=== PATIENT | female | born 1950 | race African-American/Black ===

== ENCOUNTER 2021-06-12 20:56 | Inpatient (IN) | payer MEDICARE, OTHER ==
[~2021-06-12] VITALS: Ht 149.9 cm; Wt 38.1 kg
[2021-06-12 23:23] LABS: HEMATOCRIT. 41.3 % (36.0-48.0); MEAN CORPUSCULAR HEMOGLOBIN 24.6 pg (28.0-32.0); MEAN PLATELET VOLUME 9.2 fl (7.4-10.4); PLATELET 305 x1000/uL (130-400); RED BLOOD CELL COUNT 5.29 mill/uL (4.2-5.4); RED CELL DISTRIBUTION WIDTH 17.8 % (11.6-14.6)
[2021-06-13 00:12] LABS: CHLORIDE 102 mEq/L (98-107)
[2021-06-13] MEDS ORDERED: DEXAMETHASONE 10 MG/ML VIAL IV ONE (02:45)
[2021-06-13 05:17] LABS: PLATELET ESTIMATE NORMAL
[2021-06-13 05:21] VITALS: BP 139/79
[2021-06-13 05:22] VITALS: BP 139/79
[2021-06-13] MEDS ORDERED: NICO-645 TP (05:42)
[2021-06-13] MEDS ORDERED: CHOLECALCIFEROL GT (05:42)
[2021-06-13] MEDS ORDERED: AMLO10TA80 GT (05:42)
[2021-06-13] MEDS ORDERED: MULT-230 GT (05:42)
[2021-06-13] MEDS ORDERED: IOHEXOL-300 100 ML BOTTLE ONE (05:59)
[2021-06-13] MEDS ORDERED: CLONIDINE 0.1MG TABLET PO PRN (07:00)
[2021-06-13] MEDS ORDERED: ACETAMINOPHEN 325MG TABLET PO PRN (07:00)
[2021-06-13] MEDS ORDERED: ALBUTEROL 6.7GM HFA INHALER ORI PRN (07:00)
[2021-06-13] MEDS ORDERED: ONDANSETRON HCL 4MG/2ML INJ IV PRN (07:00)
[2021-06-13] MEDS ORDERED: DOCUSATE SODIUM 100MG CAPSULE PO PRN (07:00)
[2021-06-13 08:00] VITALS: BP 151/89
[2021-06-13] MEDS: ENOXAPARIN 30MG/0.3ML SYR SUBCUT SCH (09:01)
[2021-06-13] MEDS: DEXAMETHASONE 10 MG/ML VIAL IV SCH (09:01)
[2021-06-13 12:00] VITALS: BP 138/79
[2021-06-13 16:00] VITALS: BP 136/80
[2021-06-13] MEDS: THIAMINE HCL 100MG TABLET PO SCH (16:34)
[2021-06-13] MEDS: GUAIFENESIN 200MG/10ML SUGAR FREE UDC PO PRN ×2 (17:30→21:36)
[2021-06-13] MEDS: HYDROCODONE/ACETAMINOPHEN 5/325MG TABLET PO PRN ×2 (17:31→21:37)
[2021-06-13 20:00] VITALS: BP 125/81
[2021-06-13 20:50] LABS: HEMOGLOBIN. 11.9 g/dL (12.0-16.0); MEAN CORPUSCULAR HEMOGLOBIN 24.2 pg (28.0-32.0); MEAN CORPUSCULAR VOLUME 77.5 fL (81.0-99.0); MEAN PLATELET VOLUME 9.3 fl (7.4-10.4); PLATELET 339 x1000/uL (130-400); RED BLOOD CELL COUNT 4.91 mill/uL (4.2-5.4); RED CELL DISTRIBUTION WIDTH 18.4 % (11.6-14.6)
[2021-06-13 21:00] LABS: CHLORIDE 107 mEq/L (98-107)
[2021-06-13] MEDS ORDERED: CEFTRIAXONE 1 G PREMIX 50 ML IV SCH (21:15)
[2021-06-13] MEDS: AZITHROMYCIN 500 MG in DEXT 5% WATER 250 ML IV SCH (22:12)
[2021-06-13 23:22] LABS: PLATELET ESTIMATE NORMAL
[2021-06-13] MEDS: CEFTRIAXONE 1,000 MG in DEXTROSE 5% WATER 50 ML IV SCH (23:37)
[2021-06-14] VITALS (7 sets, daily range): BP systolic 124–161; BP diastolic 73–95
[2021-06-14] MEDS: GUAIFENESIN 200MG/10ML SUGAR FREE UDC PO PRN ×3 (04:53→21:04)
[2021-06-14] MEDS: HYDROCODONE/ACETAMINOPHEN 5/325MG TABLET PO PRN ×2 (04:54→19:26)
[2021-06-14] MEDS: DEXAMETHASONE 10 MG/ML VIAL IV SCH (09:00)
[2021-06-14] MEDS: THIAMINE HCL 100MG TABLET PO SCH (09:06)
[2021-06-14] MEDS: FAMOTIDINE 20MG TABLET PO SCH (09:06)
[2021-06-14] MEDS: ENOXAPARIN 30MG/0.3ML SYR SUBCUT SCH (09:06)
[2021-06-14] MEDS ORDERED: NALOXONE HCL 0.4MG/ML VIAL IV PRN (16:15)
[2021-06-14] MEDS ORDERED: DOCUSATE SODIUM SUGAR FREE 100MG/10ML UDC GT PRN (19:30)
[2021-06-14] MEDS: AZITHROMYCIN 500 MG in DEXT 5% WATER 250 ML IV SCH (21:04)
[2021-06-14] MEDS: CEFTRIAXONE 1,000 MG in DEXTROSE 5% WATER 50 ML IV SCH (23:32)
[2021-06-15] VITALS: BP 149/90
[2021-06-15] MEDS: GUAIFENESIN 200MG/10ML SUGAR FREE UDC PO PRN ×4 (03:31→17:07)
[2021-06-15] MEDS: HYDROCODONE/ACETAMINOPHEN 5/325MG TABLET PO PRN ×2 (03:31→12:52)
[2021-06-15 04:00] VITALS: BP 132/68
[2021-06-15 08:00] VITALS: BP 114/64
[2021-06-15] MEDS: DEXAMETHASONE 10 MG/ML VIAL IV SCH (08:15)
[2021-06-15] MEDS: FAMOTIDINE 20MG TABLET PO SCH (08:15)
[2021-06-15] MEDS: ENOXAPARIN 30MG/0.3ML SYR SUBCUT SCH (08:15)
[2021-06-15] MEDS: THIAMINE HCL 100MG TABLET PO SCH (08:15)
[2021-06-15 10:47] VITALS: BP 114/64
[2021-06-15 12:16] VITALS: BP 107/74
[2021-06-15 15:53] VITALS: BP 142/79
[2021-06-15] MEDS: CEFTRIAXONE 1,000 MG in DEXTROSE 5% WATER 50 ML IV SCH (23:34)
[2021-06-15] MEDS: AZITHROMYCIN 500 MG in DEXT 5% WATER 250 ML IV SCH (23:34)
[2021-06-16] MEDS: GUAIFENESIN 200MG/10ML SUGAR FREE UDC PO PRN (00:25)
[2021-06-16 00:38] VITALS: BP 154/77
[2021-06-16 04:00] VITALS: BP 144/77
[2021-06-16 06:40] LABS: HEMATOCRIT. 35.6 % (36.0-48.0); HEMOGLOBIN. 11.6 g/dL (12.0-16.0); MEAN CORPUSCULAR HEMOGLOBIN 25.1 pg (28.0-32.0); MEAN CORPUSCULAR VOLUME 77.3 fL (81.0-99.0); MEAN PLATELET VOLUME 9.2 fl (7.4-10.4); PLATELET 332 x1000/uL (130-400); RED BLOOD CELL COUNT 4.61 mill/uL (4.2-5.4); RED CELL DISTRIBUTION WIDTH 17.8 % (11.6-14.6)
[2021-06-16 06:52] LABS: CHLORIDE 108 mEq/L (98-107)
[2021-06-16 08:00] VITALS: BP 133/85
[2021-06-16] MEDS: DEXAMETHASONE 10 MG/ML VIAL IV SCH (08:40)
[2021-06-16] MEDS: FAMOTIDINE 20MG TABLET PO SCH (08:40)
[2021-06-16] MEDS: THIAMINE HCL 100MG TABLET PO SCH (08:40)
[2021-06-16] MEDS: ENOXAPARIN 30MG/0.3ML SYR SUBCUT SCH (08:41)
[2021-06-16 12:00] VITALS: BP 136/77
[2021-06-16] MEDS ORDERED: FAMO20TA8 PO (13:45)
[2021-06-16] MEDS ORDERED: DEXA6TAB6 PO (13:47)
[2021-06-16 16:00] VITALS: BP 129/84
[2021-06-16 16:33] VITALS: BP 129/84
[2021-06-16 20:54] LABS: PLATELET ESTIMATE NORMAL
== END 2021-06-16 16:48 | disposition home or self-care (01) | DRG 871 ==
LOC: ER 20:56 → MICUSO 06-13 02:33 → 7WST 06-13 04:20 → UNDODISIN 06-16 16:02
PROVIDERS: ADMIT Internal Medicine; ATTEND Internal Medicine
DX: A41.89 Other specified sepsis (principal); U07.1 COVID-19; J12.82 Pneumonia due to coronavirus disease 2019; J96.01 Acute respiratory failure with hypoxia; E44.1 Mild protein-calorie malnutrition; Z68.1 Body mass index [BMI] 19.9 or less, adult; J20.8 Acute bronchitis due to other specified organisms; C76.0 Malignant neoplasm of head, face and neck; R13.10 Dysphagia, unspecified; I10 Essential (primary) hypertension; Z93.1 Gastrostomy status; Z92.21 Personal history of antineoplastic chemotherapy
CPT/HCPCS: 36415; 70491; 71045; 80048; 80053; 82962; 83615; 83880; 84145; 85025; 85379; 86141; 87426; 93005; 99291; J0456; J0696; J1100; J1650; J2405; J7060; Q9967